=== PATIENT | male | born 1950 | race Native Hawaiian/Other Pacific Islander ===

== ENCOUNTER 2017-09-28 10:48 | Observation (INO) ==
[2017-09-28 11:26] LABS: Baso % (Auto) 0.7 % (0.0-2.0); Eos # (Auto) 0.2 th/mm3 (0.0-0.4); Eos % (Auto) 2.3 % (0.0-4.0); Hematocrit 43.1 % (39.0-51.0); Hemoglobin 14.8 gm/dL (13.0-17.0); Lymph # (Auto) 1.3 th/mm3 (1.0-4.8); Mean Corpuscular HGB Conc 34.5 % (32.0-36.0); Mean Corpuscular Volume 84.2 fL (80.0-100.0); Mean Platelet Volume 10.1 fL (7.0-11.0); Mono # (Auto) 0.4 th/mm3 (0.0-0.9); Mono % (Auto) 6.3 % (0.0-8.0); Neut # (Auto) 4.9 th/mm3 (1.8-7.7); Neut % (Auto) 71.7 % (16.0-70.0); Platelet Count 161 th/mm3 (150-450); Red Blood Count 5.11 mil/mm3 (4.50-5.90); Red Cell Distribution Width 13.5 % (11.6-17.2); White Blood Count 6.8 th/mm3 (4.0-11.0)
[2017-09-28 11:36] LABS: Activated Partial Thrombo Time 26.6 sec (24.3-30.1); INR 1.1 Ratio; Prothrombin Time 11.4 sec (9.8-11.6)
[2017-09-28 11:52] LABS: Calcium 8.3 mg/dL (8.5-10.1); Carbon Dioxide 26.7 meq/L (21.0-32.0); Potassium 3.9 meq/L (3.5-5.1)
[2017-09-28] MEDS ORDERED: Sod Chloride 0.9% Inj 1,000 ML IV.SIG SCH (12:00)
[2017-09-28] MEDS ORDERED: Heparin/NS PF Inj 1,500 ML ONE (12:40)
[2017-09-28] MEDS ORDERED: Lidocaine PF 1% Inj 30 ML Vial ONE (12:52)
[2017-09-28] MEDS ORDERED: Iohexol 350 MG/ML 100 ML Vial (for Cath Lab) IV.SIG ONE (13:52)
--- NOTE | 2017-09-28 13:59 | CATHPROC ---
[employer] HIS Report Study Information Study Number Admission Scheduled Start Study Start [id number] Sep 28 2017 10:48AM 09/28/2017 Sep 28 2017 12:40PM [facility] Cardiac Catheterization Admit Source Facility Department Other [facility] - Teletypewriter Operator Physician and Clinical Staff Initial Arnulfo Zavala Shake Splitter Nilson ColonRN Recorder Mary Bradley,RT(R) Scrub Gabriel, Shannan,RESOURCE DEVELOPMENT DIRECTOR TECH2 Procedures Performed Procedure Location (Site) Vessel Name Coronary Angiograms LCA Left Coronary Coronary Angiograms RCA Right Coronary L Heart Cath Wire insertion Radial (right) Radial Art. Equipment Time Bench Assembler Operator Description Size Mfg Part Number Used/Scraped TRANSDUCER, TRUWAVE [id number] 12:41 [employer] PETERSON * Used W/STOCKCOCK *[id number] *[id number] *[id number] 12:41 [employer] BLANKET,WARM AIR CCL * Used *[id number] 12:41 [employer] PACK, CCL CUSTOM * Used *[id number] 12:41 [employer] SUPPORT, ARTERIAL ADULT [id number] *[id number] Used [id number] 12:41 [employer] PACER PEN, SKIN DUAL W/ RULER * Used *[id number] BAND, RADIAL COMPRESSION TR [id number] 13:44 [employer] 24CM Used SHORT 24 *[id number] 12:41 [employer] WIRE, EXCHANGE 260CM 3MMJ 260CM Used *[id number] 12:41 [employer] MANIFOLD, 4 PORT * Used *[id number] 12:41 [employer]AM[employer] TUBING, HIGH PRESSURE 20" 20" Used *[id number] 12:41 [employer] OMNIPAQUE, 350 MG, 150ML 150ML [id number] Used CATHETER, FR5 OPTITORQUE [id number] 13:01 [employer] FR 5 Used RADIAL TIG 4.0 *[id number] SHEATH, FR6 TRANSRADIAL RM*[id number] 12:41 [employer] FR 6 Used SLENDER 10CM *[id number] 13:31 [employer] PRIME WIRE, VERRATA 185CM 185CM Used *[id number] History: Current Medications Medication Dosage/Unit Route Frequency Last Date/Time Taken PLAVIX Statins (any) Beta Epi History: Allergies Allergy Reaction No Known Allergies History: Risk Factors Family History of Hypertension Dyslipidemia Previous MO Previous Heart Failure Premature CAD Yes Yes Yes Yes No Prior Valve Prior PCI Prior PCIDate Prior CABG Surgery No Yes 10/29/2015 No Cerebrovascular Peripheral Artery Chronic Lung On Dialysis Diabetes Diabetes Therapy Disease Disease Disease No No No No Yes Oral History: Stress Tests Stress or Imaging Studies Performed Yes Stress Test SPECT Stress Test SPECT Result Stress Test SPECT Ischemia Risk/Extent Yes Positive High History: Other Current Smoker Method Quit Packs a Day Years Used Pack Years No Cigarettes 5 Years Ago 1 10 10 Labs Hgb (g/dl) Hct (%) WBC (l/cumm) Platelets (thousands) 11.60-17.00 35.00-51.00 4.00-11.00 150.00-450.00 14.8 43.1 6.8 161 Glucose (mg/dl) BUN (mg/dl) Creatinine (mg/dl) BUN:Creatinine (1:x) 74.00-106.00 7.00-18.00 0.50-1.30 10.00-20.00 106 12 0.8 15 INR (PTT:PT) 0.90-1.10 1.1 CPK-MB (ng/ML) 0.50-3.60 Not Drawn Medication Medication Total Dose (Bolus/Oral) Medication Total Dosage/Unit 1% XYLOCAINE 10 mL HEPARIN 1000 units RADIAL COCKTAIL 5 mL (Bolus) VERSED 2 mg Medications (Bolus/Oral) Medication Time Given Dosage/Unit Administered By Reason VERSED 09/28/2017 1:09:24 PM 2 mg Nilson Colon 2 mg VERSED given in lab by Nilson Colon, RN via Peripheral IV. Ordered by Arnulfo Andrews. 1% XYLOCAINE 09/28/2017 1:09:54 PM 10 mL Arnulfo Andrews 10 mL 1% XYLOCAINE given in lab by Arnulfo Andrews via Subcutaneous. Ordered by Arnulfo Andrews. Ntg 200mcg Verapamil 2.5mg Heparin RADIAL COCKTAIL 09/28/2017 1:11:37 PM 5 mL (Bolus) Arnulfo Andrews 2000U 5 mL (Bolus) RADIAL COCKTAIL given in lab by Arnulfo Andrews via Radial. Using [Solution Name]. Ordered by Arnulfo Andrews. Reason: Ntg 200mcg Verapamil 2.5mg Heparin 2000U. HEPARIN 09/28/2017 1:29:50 PM 1000 units Darlene, Nilson 1000 units HEPARIN given in lab by Nilson Colon RN via Peripheral IV. Ordered by Arnulfo Andrews. Medication (Drip) Medication Time Given Dosage/Unit Concentration/Unit Diluent (ml) Solution IV Solutions 09/28/2017 12:46:43 PM 50 mL (IV) NaCl .9 IV Solutions given in lab by Nilson Colon RN via Peripheral IV. Pump/Drip Flow using NaCl .9. Ordere d by Arnulfo Andrews. Initial Case Assessment Cardiovascular HR Rhythm NIBP 63 sr 136/78 Edema Present Skin color Skin None Normal Warm Dry Circulatory - Right Pulses Dorsalis Pedis Femoral Radial 1 2 2 Scale (0,1,2,3,4,d) Scale (0,1,2,3,4,d) Circulatory - Lower Extremities Color Lower Right Color Lower Left Normal Normal Neurological State Oriented to time-place- Alert Moves all extremities person Respiration - General Respiration Rate SpO2 (%) (B/min) 11 99 Final Case Assessment Cardiovascular HR Rhythm NIBP Chest Pain 59 SB 124/71 0 Edema Present Skin color Skin None Normal Warm Dry Circulatory - Right Pulses Dorsalis Pedis Femoral Radial 1 2 2 Scale (0,1,2,3,4,d) Scale (0,1,2,3,4,d) Circulatory - Lower Extremities Color Lower Right Color Lower Left Normal Normal Neurological State Oriented to time-place- Alert Moves all extremities person Respiration - General Respiration Rate SpO2 (%) (B/min) 14 99 Chronological Log Time Study Chronological Log 12:40:27 Patient arrived via Bed. 12:46:31 Patient Name, D.O.B, / Armband Verified By R.N. 12:46:32 Consent signed by the physician and the patient and verified by the Teletypewriter Operator staff. 12:46:33 Pre-op and post- op instructions given; patient acknowledges understanding of instructions. 12:46:35 Allens test performed on the right radial and ulnar artery. 12:46:36 Patient has been NPO for More than 6Hrs. 12:46:37 Skin Breakdown- none per patient 12:46:38 Patient Warmer Placed on the Table. 12:46:39 Yuliana Prominences Protected 12:46:41 A # 20 IV was noted in the Antecubital (left). Grade = 0 12:46:43 IV Solutions given in lab by Nilson Colon, RN via Peripheral IV. Pump/Drip Flow using NaCl .9. Ordered by Arnulfo Andrews. 12:46:44 History and physical on the chart or being dictated. Assessment: Initial Case, HR=63 BPM, Rhythm=sr, SJYH=117/78 mmhg, Edema=None, Color=Normal, Ski n = Warm, Dry Right Pulses: Ray Ped=1, Femoral=2, Radial=2 12:46:45 Lower Right Extremities: Color=Normal Lower Left Extremities: Color=Normal Neurological: State=Alert, Ox3, PANIAGUA Respiration: Resp=11 B/min, SpO2=99 % Vitals capture started with the following parameters, Patient=Adult, Interval=5 min, Initial Pr xbugit=710 mmHg, 12:49:02 Deflation Rate=5 mmHg, Cuff placed on Left Arm 12:49:38 HR=66 bpm, LMKH=607/78 mmhg, GtO7=673.0 %, Resp=11 B/min, Pain=0, Fabiana=10, Hutchinson=2 12:52:33 Right Radial and groin(s) prepped with 2% chlorhexidine, and draped after a 3 min. waiting time. 12:54:11 Reference ECG taken 12:54:37 HR=62 bpm, IMDT=152/78 mmhg, UmM4=078.0 %, Resp=12 B/min, Pain=0, Fabiana=10, Hutchinson=2 12:56:32 HR=64 bpm, GLTE=363/79 mmhg, SpO2=99.0 %, Resp=15 B/min 12:56:50 MD paged 12:58:09 MD responded 12:58:28 Pressure channel 1 zeroed. 13:01:33 HR=64 bpm, BLIW=918/80 mmhg, SpO2=98.0 %, Resp=13 B/min, Pain=0, Fabiana=10, Hutchinson=2 13:06:32 HR=60 bpm, NEIM=693/76 mmhg, SpO2=99 %, Resp=13 B/min, Pain=0, Fabiana=10, Hutchinson=2 13:07:00 MD arrived. Time Out. Correct patient, correct procedure, correct physician, labs, allergies, and equipment verified with quality lab technician 13:08:47 team present. Fire risk assesment completed (see hard stop sheet for coding). Time Out Conc urred by MD and individual staff in procedure. 13:09:24 2 mg VERSED given in lab by Nilson Colon RN via Peripheral IV. Ordered by Arnulfo Andrews. 13:09:49 Case Start 13:09:54 10 mL 1% XYLOCAINE given in lab by Arnulfo Andrews via Subcutaneous. Ordered by Arnulfo Andrews . 13:11:19 Access site was Radial Artery. A SHEATH, FR6 TRANSRADIAL SLENDER 10CM FR 6 was advanced into the Radial (right) using the Perc utaneous 13:11:26 technique. 13:11:35 HR=71 bpm, HHQT=652/69 mmhg, SpO2=97.0 %, Resp=21 B/min 5 mL (Bolus) RADIAL COCKTAIL given in lab by Arnulfo Andrews via Radial. Using [Solution Name]. O rdered by Juliana 13:11:37 Arnulfo. Reason: Ntg 200mcg Verapamil 2.5mg Heparin 2000U. A CATHETER, FR5 OPTITORQUE RADIAL TIG 4.0 FR 5 was advanced over a wire. OMNIPAQUE, 350 MG, 150 ML 150ML 13:12:02 was used for injections. 13:13:11 The LCA was injected and visualized at various angles. OMNIPAQUE, 350 MG, 150ML 150ML used . Recorded Pressure: Ao, HR=75, Condition=Condition 1 13:14:42 (Aorta) Ao 91/59/74 13:16:32 HR=77 bpm, BFJA=938/78 mmhg, SpO2=96.0 %, Resp=13 B/min 13:16:36 The RCA was injected and visualized at various angles. OMNIPAQUE, 350 MG, 150ML 150ML used . After removing the current catheter a MPA-2 INFINITI CATHETER FR 5 was advanced over a WIRE, EX CHANGE 260CM 13:18:04 3MMJ 260CM. Recorded Pressure: LV, HR=70, Condition=Condition 1 13:18:38 (Left Ventricle) LV 118/3/8 Recorded Pressure: LV, Ao, HR=72, Condition=Condition 1 13:18:58 (Left Ventricle) LV 116/4/11, (Aorta) Ao 114/66/88 13:21:35 HR=67 bpm, PISM=434/70 mmhg, SpO2=95.0 %, Resp=12 B/min After removing the current catheter a XB 3.5 GUIDE CATHETER FR 6 was advanced over a WIRE, EXCH MAGNO 260CM 13:26:23 3MMJ 260CM. 13:26:38 HR=66 bpm, XCAB=046/66 mmhg, SpO2=96.0 %, Resp=19 B/min 13:29:50 1000 units HEPARIN given in lab by Nilson Colon, RN via Peripheral IV. Ordered by Alvin Andrews. 13:31:35 HR=67 bpm, RZOJ=474/70 mmhg, SpO2=95.0 %, Resp=14 B/min 13:34:14 A PRIME WIRE, VERRATA 185CM 185CM was inserted via Radial (right). 13:36:34 HR=64 bpm, PXCS=843/64 mmhg, SpO2=97.0 %, Resp=11 B/min 13:39:42 Flow Wire was was placed in the LAD Mid. The IFR measures 0.93 Percent. 13:40:15 Flow Wire was was placed in the LAD Mid.The IFR measures 0.91 Percent. 13:40:49 The PRIME WIRE, VERRATA 185CM 185CM was removed. 13:41:35 HR=66 bpm, XKST=042/71 mmhg, SpO2=95.0 %, Resp=15 B/min 13:41:48 Catheter was removed 13:42:17 Case End (Physician broke scrub) Assessment: Final Case, HR=59 BPM, Rhythm=SB, PKJI=585/71 mmhg, Chest Pain=0, Edema=None, [place] r=Normal, Skin = Warm, Dry Right Pulses: Ray Ped=1, Femoral=2, Radial=2 13:43:11 Lower Right Extremities: Color=Normal Lower Left Extremities: Color=Normal Neurological: State=Alert, Ox3, PANIAGUA Respiration: Resp=14 B/min, SpO2=99 % Radial Compression Device Used. 15 mLs of air placed in BAND, RADIAL COMPRESSION TR SHORT 24 2 4CM. Affected 13:43:44 hand 96 % O2 saturation. 13:44:26 No case complications noted. 13:44:27 Cine recording checked. 13:44:29 Bedside Report will be given. 13:44:34 A Left Heart Cath was performed. 13:46:36 HR=65 bpm, LCBP=628/66 mmhg, SpO2=99.0 %, Resp=17 B/min, Pain=0, Fabiana=10, Hutchinson=2 13:51:41 NQDQ=846/51 mmhg 13:52:32 Patient moved to stretcher End Study - Contrast Media Used In Study Contrast Total Opened (mL) Total Used (mL) Total Wasted (mL) Omnipaque 90 90 0 End Study - Maximum Contrast Load Max Contrast Load (mL) 473.0 End Study - Radiation Exposure Fluoro Time (minutes) 5.6 End Study - Patient Disposition Complications Transferred To No Teletypewriter Operator Holding
[2017-09-28] MEDS ORDERED: Sod Chloride 0.9% Inj 1,000 ML IV.CONT SCH (14:00)
--- NOTE | 2017-09-28 14:12 | MA ---
cc: Arnulfo Andrews MD DATE: 09/28/2017 INDICATION: The patient is a 67-year-old with coronary artery disease, myocardial infarction, chest pain, positive stress test for ischemia. PROCEDURE: Left heart catheterization, angiogram, left ventriculogram, IFR of the LAD. DESCRIPTION OF PROCEDURE: After obtaining informed consent, with the patient in fasting state, was brought to the fish hatchery laborer. The right radial artery was sterilized and draped with sterile drapes. 1% Xylocaine was used to locally anesthetize the area. A 6-Slovak sheath was used to access the right radial artery. A [place] catheter was used to intubate left main and intubate right coronary artery. A multipurpose was used to perform left ventriculogram and the pressure measurements. XB 3.5 6-Slovak for performance of IFR. At the end of the procedure, TR band applied. The patient was sent back to his room in stable condition after taking catheters and wires and sheaths out. RESULTS: CORONARY ANGIOGRAM: Left main coronary artery is medium size vessel that bifurcates in LAD, left circumflex artery. Left main has no significant disease. Left anterior descending coronary artery has diffuse disease in the mid segment with borderline 50% or more and a stent in the diagonal patent. Circumflex coronary artery had a stent, widely patent. Mid segment of 40%. Dominant vessel. The right coronary artery is small, nondominant, no significant disease. IFR was performed of the LAD distal to the lesion and it was 0.91. Continue medical management at this point. LEFT VENTRICULOGRAM: Left ventriculogram was performed. Ejection fraction estimated to be 55/60 percent. No pressure gradient across the aortic valve. Left ventricular end diastolic pressure 14, aortic pressure 110/70. Management medically to continue and sent back to his room in stable condition. POSTOPERATIVE DIAGNOSES: A 50/60% mid LAD with IFR 0.91. Patent stent in diagonal, patent stent in the circumflex. Preserved systolic performance of the left ventricle. Arnulfo Andrews MD DOTTIE/TL , 01:48 PM , 02:11 PM
--- NOTE | 2017-09-29 08:43 | ECG ---
Date Performed: 09/28/2017 Time Performed: 11:26:54 PTAGE: 67 years EKG: Sinus rhythm . Possible inferior infarct - age undetermined Abnormal ECG NO PREVIOUS TRACING DOCTOR: Julius Leija Interpretating Date/Time 09/29/2017 08:41:59
== END 2017-09-28 17:36 | disposition home or self-care (01) ==
LOC: HCAT 10:48 → HSDI 10:48 → HDIC 10:59
PROVIDERS: ADMIT Internal Medicine Cardiovascular Disease; ATTEND Internal Medicine Cardiovascular Disease